=== PATIENT | male | born 1980 | race Caucasian/White ===

== ENCOUNTER 2020-09-12 10:37 | Outpatient (REF) | payer OTHER, SELFPAY ==
--- NOTE | ~2020-09-12 | XR_ITS ---
EXAMINATION: XR CHEST CLINICAL INFORMATION: Cough. COMPARISON: None TECHNIQUE: 2 views of the chest were obtained. FINDINGS: No significant abnormality is noted involving the heart, lungs, mediastinum, bony thorax or soft tissues. XR/XR chest 2V IMPRESSION: Unremarkable chest exam.
== END 2020-09-12 10:38 | disposition home or self-care (01) ==
LOC: HO.HMGCX 10:37
PROVIDERS: Visit Provider Nurse Practitioner Family
DX: Z13.89 Encounter for screening for other disorder (principal)
CPT/HCPCS: 71046

== ENCOUNTER 2021-09-15 12:40 | Outpatient (REF) | payer OTHER, SELFPAY ==
[2021-09-15 14:19] LABS: Binax Internal Control QC Valid; Binax Now Covid-19 Ag Negative (Negative); Binax Performed by: HO.TORG
== END 2021-09-15 12:41 | disposition home or self-care (01) ==
LOC: HO.HMGCLDS 12:40
DX: J02.9 Acute pharyngitis, unspecified (principal); Z20.822 Contact with and (suspected) exposure to COVID-19
CPT/HCPCS: 87811; C9803

== ENCOUNTER 2022-04-18 20:52 | Emergency (ER) | payer OTHER, SELFPAY ==
[2022-04-18 22:05] VITALS: BP 128/91; PULSE 64; RESP 16; TEMP 36.1; O2SAT 98; BMI 34.0
[2022-04-19 03:00] VITALS: BP 135/86; PULSE 55; RESP 16; TEMP 36; O2SAT 99
== END 2022-04-19 07:13 | disposition left against medical advice (07) ==
PROVIDERS: Emergency Provider Emergency Medicine
DX: R10.30 Lower abdominal pain, unspecified (principal)
CPT/HCPCS: 99281